=== PATIENT | female | born 1965 | race Asian ===

== ENCOUNTER 2016-10-21 19:00 | Emergency (ER) | payer OTHER ==
[~2016-10-21] VITALS: Ht 157.5 cm; Wt 54.9 kg
== END 2016-10-21 22:52 | disposition home or self-care (01) ==
LOC: ED 19:00
DX: S60.031A Contusion of right middle finger without damage to nail, initial encounter (principal); W22.8XXA Striking against or struck by other objects, initial encounter; Y93.89 Activity, other specified; Y92.89 Other specified places as the place of occurrence of the external cause; Y99.8 Other external cause status
CPT/HCPCS: 96373; 99282; J1885